=== PATIENT | female | born 1955 | race Caucasian/White ===

== ENCOUNTER 2017-10-27 08:10 | Emergency (ER) | payer MEDICAID ==
[~2017-10-27] VITALS: Ht 162.6 cm; Wt 86.0 kg
[2017-10-27] MEDS ORDERED: SULFAMETHOXAZOLE/TRIMETHOPRIM 800/160MG TABLET PO ONE (09:30)
[2017-10-27] MEDS ORDERED: SILVER SULFADIAZINE 1% CREAM 25GM TOP ONE (09:30)
[2017-10-27] MEDS ORDERED: CEPHALEXIN 500MG CAPSULE PO ONE (09:30)
[2017-10-27 10:02] VITALS: BP 144/78
== END 2017-10-27 10:25 | disposition home or self-care (01) ==
LOC: ER 10:19
DX: L03.116 Cellulitis of left lower limb (principal); L03.115 Cellulitis of right lower limb; M19.90 Unspecified osteoarthritis, unspecified site; E11.9 Type 2 diabetes mellitus without complications; I10 Essential (primary) hypertension; Z76.0 Encounter for issue of repeat prescription; Z85.3 Personal history of malignant neoplasm of breast; Z87.891 Personal history of nicotine dependence
CPT/HCPCS: 99284; Z7610